=== PATIENT | male | born 1975 | race African-American/Black ===

== ENCOUNTER 2019-02-04 09:02 | Inpatient (IN) ==
[2019-02-04 10:56] LABS: Basophils # 0.1 10*3/uL (0.0-0.2); Basophils % 0.6 % (0.0-0.8); Eosinophils # 3.7 10*3/uL (0.0-0.87); Eosinophils % 31.9 % (0.00-10.9); Hematocrit 44.7 VOL% (42.0-52.0); Hemoglobin 14.2 GM/DL (14.0-18.0); Immature Granulocytes % 0.6 %; Immature Granulocytes Absolute 0.07 #; Lymphocytes # 2.4 10*3/uL (1.4-4.0); Mean Corpuscular HGB Conc 31.8 GM/DL (32-36); Mean Corpuscular Volume 82.8 FL (87-102); Mean Platelet Volume 9.9 FL (9.6-12.0); Monocytes % 6.5 % (1.7-12.7); Neutrophils % 39.4 % (38.7-73.9); Platelet Count 249 T/CUMM (130-400); White Blood Count 11.6 T/CUMM (4-12)
[2019-02-04 11:03] LABS: PT Patient Result 10.6 SECS (9.6-12.2); Partial Thromboplastin Time 25.2 SECS (20.8-36.0)
[2019-02-04 11:10] LABS: Eosinophils 37 % (0-10); Hypochromasia 1+; Lymphocytes 26 % (20-55); Segmented Neutrophils 31 % (50-85); Total Cells Counted 100
[2019-02-04 11:11] LABS: Atypical Lymphocytes Few; Microcytosis Slight; Platelet Estimate Normal
[2019-02-04 11:13] LABS: Apearance,Urine CLEAR (Clear); Bilirubin,Urine Negative (Negative); Blood, Urine Negative (Negative); Glucose,Urine (UA) Negative (Negative); Hyaline Casts,Urine 24 /LPF (0-3); Ketones,Urine 5 mg/dL (Negative); Mucus,Urine Many /LPF (Occasional); Nitrite,Urine Negative (Negative); Protein,Urine 30 MG/DL; Sperm,Urine Occasional /HPF (Negative); Urine Color Amber (Yellow); Urine Specific Gravity 1.026 (1.001-1.035); Urine Urobilinogen < 2.0 EU/DL (0.2-1.0); WBC,Urine 3 /HPF (0-6)
[2019-02-04 11:39] LABS: Alanine Aminotransferase 23 U/L (16-61); Albumin 3.3 G/DL (3.4-5.0); Alkaline Phosphatase 73 U/L (45-117); Aspartate Amino Transferase 24 U/L (0-37); Bilirubin,Total < 0.39 MG/DL (0.2-1.0); Blood Urea Nitrogen 9 MG/DL (7-18); Calcium 9.1 MG/DL (8.5-10.1); Glucose 77 MG/DL (74-106); Osmolality,Calculated 276.4 MOS/KG (273-304)
[2019-02-04] MEDS ORDERED: ENOXAPARIN 120 MG/0.8 ML SYRINGE SUBCUT STA (12:04)
[2019-02-04] MEDS ORDERED: MAGNESIUM SULF RIDER 4 GM in PREMIX 1 EACH IV PRN (13:21)
[2019-02-04] MEDS ORDERED: MAGNESIUM SULF RIDER 2 GM in PREMIX 1 EACH IV PRN (13:21)
[2019-02-04] MEDS ORDERED: FUROSEMIDE 40 MG/4 ML VIAL IV STA (13:26)
[2019-02-04] MEDS ORDERED: ACETAMINOPHEN 325 MG TABLET PO PRN (13:29)
[2019-02-04] MEDS ORDERED: MORPHINE 4 MG/1 ML VIAL IV PRN (13:29)
[2019-02-04] MEDS ORDERED: diphenhydrAMINE CAP 25 MG CAPSULE PO PRN (13:29)
[2019-02-04] MEDS ORDERED: ONDANSETRON 4 MG/2 ML VIAL IV PRN (13:29)
[2019-02-04] MEDS ORDERED: guaiFENesin/DM ER 600-30 MG TABLET PO PRN (13:29)
[2019-02-04 13:30] LABS: Albumin 3.3 G/DL (3.4-5.0)
[2019-02-04] MEDS ORDERED: IBUPROFEN 800 MG TABLET PO PRN (13:35)
[2019-02-04] MEDS: cefTRIAXone 1,000 MG in SYRINGE 1 EACH IV SCH (14:57)
[2019-02-04 15:00] LABS: PT Patient Result 11.1 SECS (9.6-12.2); Partial Thromboplastin Time 28.8 SECS (20.8-36.0)
[2019-02-04] MEDS: AZITHROMYCIN INJ 500 MG in SODIUM CHLORIDE 0.9% 250 ML IV SCH (15:00)
[2019-02-04] MEDS: CARVEDILOL 3.125 MG TABLET PO SCH (17:14)
[2019-02-04] MEDS: NICOTINE 21 MG/24 HR PATCH TRANSDERM SCH (17:17)
[2019-02-04] MEDS: FUROSEMIDE 20 MG/2 ML VIAL IV SCH (17:25)
[2019-02-04 19:01] LABS: Barbiturates Screen,Urine Negative (Negative); Benzodiazepines Screen,Urine Negative (Negative); Cannabinoid Screen,Urine Negative (Negative); Opiate Screen,Urine Negative (Negative); Phencyclidine Screen,Urine Negative (Negative)
[2019-02-04] MEDS: ALBUTEROL/IPRATROPIUM 3 ML NEB RESP TX SCH (19:04)
[2019-02-04] MEDS ORDERED: APIXABAN 5 MG TABLET PO SCH (21:00)
[2019-02-04] MEDS: APIXABAN 5 MG TABLET PO SCH (21:18)
[2019-02-04] MEDS: DOCUSATE SODIUM 100 MG CAPSULE PO SCH (21:18)
[2019-02-05] MEDS: ALBUTEROL/IPRATROPIUM 3 ML NEB RESP TX SCH ×4 (00:04→19:30)
[2019-02-05 04:52] LABS: Basophils # 0.1 10*3/uL (0.0-0.2); Basophils % 0.5 % (0.0-0.8); Eosinophils # 3.5 10*3/uL (0.0-0.87); Eosinophils % 31.7 % (0.00-10.9); Hematocrit 41.4 VOL% (42.0-52.0); Hemoglobin 12.9 GM/DL (14.0-18.0); Immature Granulocytes % 0.4 %; Immature Granulocytes Absolute 0.04 #; Lymphocytes # 2.2 10*3/uL (1.4-4.0); Lymphocytes % 19.7 % (21.2-54.2); Mean Corpuscular HGB Conc 31.2 GM/DL (32-36); Mean Corpuscular Volume 83.5 FL (87-102); Mean Platelet Volume 9.6 FL (9.6-12.0); Monocytes % 7.5 % (1.7-12.7); Neutrophils % 40.2 % (38.7-73.9); Platelet Count 217 T/CUMM (130-400); Red Blood Count 4.96 MC/CUMM (3.8-5.5); White Blood Count 11.1 T/CUMM (4-12)
[2019-02-05 05:17] LABS: Thyroid Stimulating Hormone 1.78 uIU/ml (0.358-3.74)
[2019-02-05 05:22] LABS: Eosinophils 41 % (0-10); Hypochromasia Slight; Lymphocytes 18 % (20-55); Platelet Estimate Normal; Segmented Neutrophils 40 % (50-85); Total Cells Counted 100
[2019-02-05 05:32] LABS: Risk Ratio 4.9; VLDL CHOLESTEROL 21.2 MG/DL
[2019-02-05] MEDS: FUROSEMIDE 20 MG/2 ML VIAL IV SCH ×2 (09:41→16:06)
[2019-02-05] MEDS: PANTOPRAZOLE 40 MG TABLET PO SCH (09:41)
[2019-02-05] MEDS: CARVEDILOL 3.125 MG TABLET PO SCH ×2 (09:44→16:06)
[2019-02-05] MEDS: DOCUSATE SODIUM 100 MG CAPSULE PO SCH ×2 (09:44→21:01)
[2019-02-05] MEDS: APIXABAN 5 MG TABLET PO SCH ×2 (09:44→21:01)
[2019-02-05] MEDS: NICOTINE 21 MG/24 HR PATCH TRANSDERM SCH (09:45)
[2019-02-05] MEDS: AZITHROMYCIN INJ 500 MG in SODIUM CHLORIDE 0.9% 250 ML IV SCH (09:53)
[2019-02-05] MEDS: cefTRIAXone 1,000 MG in SYRINGE 1 EACH IV SCH (09:53)
[2019-02-06] MEDS: ALBUTEROL/IPRATROPIUM 3 ML NEB RESP TX SCH ×3 (00:05→13:43)
[2019-02-06] MEDS: DOCUSATE SODIUM 100 MG CAPSULE PO SCH (08:41)
[2019-02-06] MEDS: FUROSEMIDE 20 MG/2 ML VIAL IV SCH (08:42)
[2019-02-06] MEDS: CARVEDILOL 3.125 MG TABLET PO SCH (08:42)
[2019-02-06] MEDS: NICOTINE 21 MG/24 HR PATCH TRANSDERM SCH (08:42)
[2019-02-06] MEDS: cefTRIAXone 1,000 MG in SYRINGE 1 EACH IV SCH (08:42)
[2019-02-06] MEDS: PANTOPRAZOLE 40 MG TABLET PO SCH (08:42)
[2019-02-06] MEDS: APIXABAN 5 MG TABLET PO SCH (08:45)
[2019-02-06] MEDS ORDERED: AZITHROMYCIN 250 MG TABLET PO SCH (09:00)
[2019-02-06 11:43] VITALS: BP 110/57
[2019-02-06 11:51] LABS: Protein C Activity Plasma 115 % (70 - 150)
[2019-02-06 16:35] LABS: DRVVT Screen Ratio 1.1 ratio (0.0 - 1.1); INR 1.2
[2019-02-06 16:43] LABS: Eosinophils,Pleural Fluid 71 %; Lymphocytes,Pleural Fluid 17 %; Monocytes,Pleural Fluid 9 %; Neutrophils,Pleural Fluid 3 %; RBC,Pleural Fluid > 100000 T/CUMM
[2019-02-07 13:06] LABS: Homocysteine 17 mcmol/L
[2019-02-08 11:21] LABS: Protein S Activity Plasma 153 % (65 - 160)
[2019-02-11 17:10] LABS: F5DNA Reviewed By SEE COMMENTS; Factor V Leiden (R506Q) Mutati Negative (Negative)
[2019-02-12] MEDS ORDERED: APIXABAN 5 MG TABLET PO SCH (09:00)
[2019-02-12 14:56] LABS: PTNT Reviewed By SEE COMMENTS
== END 2019-02-06 15:05 | disposition home or self-care (01) | DRG 193 ==
LOC: N.ED 09:02 → N.EDINP 09:02 → N.2E 14:00
PROVIDERS: ADMIT Internal Medicine; ATTEND Internal Medicine
PROC: IRTHORA (2019-02-05 12:30)

== ENCOUNTER 2020-11-30 05:15 | Observation (INO) ==
[2020-11-30] MEDS ORDERED: PANTOPRAZOLE 40 MG VIAL IV STA (05:31)
[2020-11-30] MEDS ORDERED: ASPIRIN 325 MG TABLET PO STA (05:31)
[2020-11-30 05:55] LABS: Basophils % 0.7 % (0.0-0.8); Eosinophils # 0.2 10*3/uL (0.0-0.87); Eosinophils % 3.1 % (0.00-10.9); Hematocrit 45.3 VOL% (42.0-52.0); Hemoglobin 14.3 GM/DL (14.0-18.0); Immature Granulocytes % 0.3 %; Immature Granulocytes Absolute 0.02 #; Lymphocytes # 1.8 10*3/uL (1.4-4.0); Lymphocytes % 30.2 % (21.2-54.2); Mean Corpuscular HGB Conc 31.6 GM/DL (32-36); Mean Corpuscular Volume 82.7 FL (87-102); Mean Platelet Volume 9.8 FL (9.6-12.0); Monocytes % 9.6 % (1.7-12.7); Neutrophils % 56.1 % (38.7-73.9); Platelet Count 193 T/CUMM (130-400); Red Blood Count 5.48 MC/CUMM (3.8-5.5); Red Cell Distribution Width 14.6 % (9.3-17.3); White Blood Count 5.9 T/CUMM (4-12)
[2020-11-30 06:09] LABS: PT Patient Result 11.2 SECS (10.5-12.0)
[2020-11-30 06:16] LABS: Eosinophils 2 % (0-10); Lymphocytes 26 % (20-55); Platelet Estimate Adequate; Segmented Neutrophils 62 % (50-85); Total Cells Counted 100
[2020-11-30 06:27] LABS: Bilirubin,Urine Negative (Negative); Blood, Urine Negative (Negative); Glucose,Urine (UA) Negative (Negative); Ketones,Urine Negative (Negative); Mucus,Urine Occasional /LPF (Occasional); Nitrite,Urine Negative (Negative); Protein,Urine Negative; RBC,Urine 1 /HPF (0-4); Squamous Epithelial Cell,Urine Occasional /HPF (0-10); Urine Appearance CLEAR (Clear); Urine Color Yellow (Yellow); Urine Urobilinogen < 2.0 EU/DL (0.2-1.0)
[2020-11-30 06:38] LABS: Albumin 3.8 G/DL (3.4-5.0); Bilirubin,Total 0.4 MG/DL (0.2-1.0); Calcium 9.1 MG/DL (8.5-10.1); Osmolality,Calculated 279.4 MOS/KG (273-304); Potassium 3.8 MMOL/L (3.5-5.1); Total Protein 7.2 G/DL (6.4-8.2)
[2020-11-30 07:26] LABS: Barbiturates Screen,Urine Negative (Negative); Benzodiazepines Screen,Urine Negative (Negative); Cannabinoid Screen,Urine Positive (Negative); Opiate Screen,Urine Negative (Negative); Phencyclidine Screen,Urine Negative (Negative)
[2020-11-30] MEDS: APIXABAN 5 MG TABLET PO SCH ×3 (08:11→21:41)
[2020-11-30] MEDS ORDERED: hydrALAZINE 20 MG/1 ML VIAL IV PRN (08:18)
[2020-11-30] MEDS ORDERED: DEXTROSE 50% 25 GM/50 ML VIAL IV PRN ×2 (08:18)
[2020-11-30] MEDS ORDERED: GLUCAGON 1 MG VIAL IM PRN (08:18)
[2020-11-30] MEDS ORDERED: ACETAMINOPHEN 325 MG TABLET PO PRN (08:18)
[2020-11-30] MEDS ORDERED: ONDANSETRON 4 MG/2 ML VIAL IV PRN (08:18)
[2020-11-30 08:48] LABS: Risk Ratio 3.73
[2020-11-30] MEDS: PANTOPRAZOLE 40 MG TABLET PO SCH (10:05)
[2020-11-30] MEDS: INSULIN LISPRO 100 UNIT/ML SUBCUT SCH ×3 (11:56→21:41)
[2020-12-01 05:54] LABS: Basophils % 0.8 % (0.0-0.8); Eosinophils # 0.2 10*3/uL (0.0-0.87); Eosinophils % 4.1 % (0.00-10.9); Hematocrit 45.7 VOL% (42.0-52.0); Hemoglobin 14.8 GM/DL (14.0-18.0); Immature Granulocytes % 0.4 %; Immature Granulocytes Absolute 0.02 #; Lymphocytes # 1.9 10*3/uL (1.4-4.0); Lymphocytes % 36.7 % (21.2-54.2); Mean Corpuscular HGB Conc 32.4 GM/DL (32-36); Mean Corpuscular Volume 81.9 FL (87-102); Mean Platelet Volume 10.5 FL (9.6-12.0); Monocytes % 11.2 % (1.7-12.7); Neutrophils % 46.8 % (38.7-73.9); Platelet Count 216 T/CUMM (130-400); Red Blood Count 5.58 MC/CUMM (3.8-5.5); Red Cell Distribution Width 14.5 % (9.3-17.3); White Blood Count 5.2 T/CUMM (4-12)
[2020-12-01] MEDS: INSULIN LISPRO 100 UNIT/ML SUBCUT SCH (07:39)
[2020-12-01 07:50] VITALS: BP 110/60
[2020-12-01] MEDS: PANTOPRAZOLE 40 MG TABLET PO SCH (08:17)
[2020-12-01] MEDS: APIXABAN 5 MG TABLET PO SCH (08:17)
[2020-12-01 13:27] LABS: Protein C Activity Plasma 132 % (70 - 150)
[2020-12-01 13:51] LABS: DRVVT Screen Ratio 1.27 ratio (<1.20); INR 1.2 (0.9-1.1)
== END 2020-12-01 10:37 | disposition home or self-care (01) ==
LOC: N.EDINP 05:15 → N.ED 05:15 → N.5E 13:37
PROVIDERS: ADMIT Internal Medicine; ATTEND Internal Medicine